=== PATIENT | female | born 1995 | race African-American/Black ===

== ENCOUNTER 2018-12-21 15:52 | Inpatient (IN) | payer OTHER ==
[2018-12-21] MEDS: Sodium Chloride 0.9% 1,000 ML IV SCH ×2 (16:30→17:44)
[2018-12-21 17:11] LABS: Hemoglobin 13.6 g/dL (12.0-16.0); Mean Corpuscular HGB CONC 31.8 g/dL (32.0-36.0); Mean Corpuscular Hemoglobin 24.6 pg (27.0-31.0); Mean Corpuscular Volume 77.4 fL (78.0-98.0); Mean Platelet Volume 11.5 fL (7.4-10.4); Platelet Count 198 thou/uL (130-400); RBC Distribution Width 20.9 % (11.5-14.5); Red Blood Cell (RBC) Count 5.54 mill/uL (4.20-5.40); White Blood Cell (WBC) Count 9.9 thou/uL (4.8-10.8)
--- NOTE | 2018-12-21 17:20 | PDOC.FPROB ---
FMR OB H&P: HPI - History of Present Illness Chief Complaint: Weakness, Vomiting History of Present Illness: Patient is a 23 yo AA female at 31.5 weeks per approx. 9 week U/S (per patient) who presents to L&D at [facility], with complaint of weakness and vomiting that started on Thursday and has been progressively worsening. She states she has not been able to eat much and is currently nauseous. She also complains of being thirsty and of some heartburn. Patient was diagnosed with T1DM at age 14, has had previous episodes of DKA (chart review shows treated here in 2017). Her FBG over past week have been in 260s- 300s per [facility] records. Patient reports she takes 11 units Novolog at 0500 and 2000, and uses a SSI with meals (correlated with [facility] records). Currently denies chest pain, sob, headache, dizziness, vision changes, hearing changes, diarrhea, constipation, myalgia, arthralgia. Patient states her due date is Feb 17, 2019 and says she has been told this date since she had an U/S done at [facility] in [place] at around 9 weeks EGA. Patient has had limited care at various locations in [place] and [place]. She has had no care in this area. In late Nov 2018 patient states she had a seizure while visiting a friend in [place] and was started on Keppra 500 mg BID at that time, denies any seizures since. R OB H&P: Current - Care : 1 Para: 0 Gestational age: 31.5 weeks Due date: 02/17/2019 Dating Criteria: 9 week U/S Course/Complications: limited PNC - OB Labs Blood type: B RH: positive Antibody Screen: unknown HIV: unknown RPR: unknown HepBsAg: unknown Quad screen: unknown Gonorrhea: unknown Chlamydia: unknown GBS: unknown FMR OB H&P: History - Past Medical History PMH: T1DM, Seizures, Anemia - OB History OB History: No previous pregnancies. Current @ estimated EGA 31.5 weeks per 9 week U/S (not verified by chart review) - [employer] History [employer] History: Denies hx of STDs or HIV infxn. - Surgical History Sx History: Appendectomy, Trach with previous DKA visit - Social History Social History: Denies EtOH or tobacco use. Admits to using marijuana 1 week ago. - Family History Family History: unknown FMR OB H&P: Medications - Current Home Medications: Medication Instructions Recorded Confirmed Type Ferrous Sulfate [Feosol] 325 mg PO BID-WM #60 tab 10/07/16 Rx HumuLIN 70/30 [HumuLIN 70/30 Vial] 25 units SC BID-WM #1 vial 10/07/16 Rx Humulin R [NovoLIN R] 0 unit SC TID-WM PRN #1 vial 10/07/16 Rx Acetaminophen [Tylenol] 325 mg PO BID 12/21/18 12/21/18 History Insulin Aspart [Novolog] 11 unit SQ BID 12/21/18 12/21/18 History Ondansetron HCl [Zofran] 4 mg PO Q8HR 12/21/18 12/21/18 History levETIRAcetam [Keppra] 500 mg PO BID 12/21/18 12/21/18 History Allergies/Adverse Reactions: Allergies Allergy/AdvReac Type Severity Reaction Status Date / Time Penicillins Allergy Unknown Rash Verified 12/21/18 17:57 warfarin Allergy Unknown Verified 12/21/18 17:57 grapefruit Allergy Rash Verified 10/04/16 15:53 morphine Allergy Verified 12/21/18 17:50 FMR OB H&P: ROS - Review of Systems General: reports: weight/appetite/sleep changes, fatigue. denies: fever/chills Eyes: denies: eye pain, vision changes, double vision ENT: denies: nasal congestion, rhinorrhea Cardiovascular: denies: chest pain, palpitation, edema Respiratory: denies: cough, congestion, shortness of breath Gastrointestinal: reports: indigestion, nausea, vomiting. denies: abdominal pain, diarrhea, constipation Genitourinary (Female): denies: dysuria, polyuria, vaginal discharge, vaginal bleeding, contractions Musculoskeletal: denies: pain, stiffness, tenderness, arthritis/arthralgias Neurologic: reports: seizures, weakness. denies: numbness, headache Integumentary: denies: itching, rash Endocrine: denies: polydipsia, polyuria FMR OB H&P: Vital Signs - Maternal Vital signs: BP 120s/70, HR 90s-140s - Heart Tones Baseline: 160 Variability: minimal Acceleration: absent Deceleration: absent Category: category 2 [place] contractions every: none FMR OB H&P: Physical Exam - Physical Exam General: NAD, awake, alert and oriented Deviation from normal: appears pale and speaking softly HEENT: normocephalic and atraumatic, EOMI, conjunctiva clear, no scleral icterus , grossly normal vision, grossly normal hearing Deviation from normal: dry mucous membranes Neck: supple, FROM Heart: RRR, normal S1/S2, no murmurs/rubs/gallops, pulses present, no edema General: CTAB, no respiratory distress, good air movement, no rales/rhonchi, no wheezing Abdomen: soft, fundus(cm) (firm, above umbilicus), non-tender, bowel sound present Musculoskeletal: pulses present, FROM in all four extremities Neurological: no focal deficit Skin: no rash, no jaundice Deviation from normal: poor turgor Lymphatic: no unusual bruising or bleeding Psychiatric: intact recent and remote memory, normal mood and affect FMR OB H&P: Results - Labs Lab results: Laboratory Results - last 24 hr 12/21/18 12/21/18 12/21/18 16:30 16:57 16:57 WBC 9.9 RBC 5.54 H Hgb 13.6 Hct 42.8 MCV 77.4 L MCH 24.6 L MCHC 31.8 L RDW 20.9 H Plt Count 198 MPV 11.5 H POC Glucose 253 H Blood Bank Comment See comment: FMR OB H&P: A/P - Problem List (1) Type 1 diabetes mellitus affecting in third trimester, antepartum Current Visit: Yes Status: Acute Code(s): O24.013 - PRE-EXISTING TYPE 1 DIABETES, IN , THIRD TRIMESTER (2) with fetus of unknown gestational age Current Visit: Yes Status: Acute Code(s): Z34.90 - ENCNTR FOR SUPRVSN OF NORMAL , UNSP, UNSP TRIMESTER (3) Tachycardia Current Visit: Yes Status: Acute Code(s): R00.0 - TACHYCARDIA, UNSPECIFIED (4) CASSIDY (acute kidney injury) Current Visit: Yes Status: Acute Code(s): N17.9 - ACUTE KIDNEY FAILURE, UNSPECIFIED Disposition: 23 yo Female evaluated for weakness and vomiting with presumed episode of DKA #Type 1 Diabetes Mellitus, suspected DKA -FBGs has been in 260s-300s over past week [facility] -hx of DKA in 2017, requiring a trach -currently receiving 1L NS bolus in L&D triage -will check CBC, CMP, UA, Ketones, HgA1C -will obtain ABGs -continue home insulin regimen: 11 units Novolog @ 0500 & 2000, mild SSI with meals--will titrate based on accuchecks #Tachycardia -patient initially had HR in 140s-160s upon initial L&D triage, currently HR in the 90s & BP wnl -continue to monitor vitals -will repeat NS bolus as needed -will check CBC, pt with hx of anemia # in third trimester with unconfirmed dates -patient states her due date was based on a 9 week U/S -order U/S for dating and status -will attempt to find any records, all labs currently unknown -will check blood type, UDS #Acute Kidney Injury -Cr 1.2 on CMP -currently receiving NS 1L bolus as above Dispo: Guarded, monitor on triage in L&D. Obtain labs and U/S for dating/ status. Anticipate admission to women's/post- floor later this evening for continued evaluation and care. Discussion: Date/Time: 12/21/181719 This H&P was discussed with Dr. Mills and Dr. Woodward who agree with the above documentation and plan. Addendum - Attending - Attending Attestation Date/Time: 12/21/182053 I personally evaluated the patient and discussed the management with Dr. Delaney I agree with the History, Examination, Assessment and Plan documented above with any addition or exceptions noted below- Consulted by Dr. Masterson for this 23 yo @ 31 weeks with h/o Type 1 DM, seizure disorder presented with weakness, N/V since Thursday. Has not been able to tolerate po well. Denies any fever, chills, abd pain, diarrhea, URI symptoms. H/o DKA -last in 2017. (+) FM. PMH/Meds/SH reviewed and agree with resident's documentation. Afebrile VSS Exam repeated by me and agree with resident's findings. Labs: Hx=809, K=3.9, Cl= 98, CO2=16, BUN/Cr=18/1.20, Ijhd=733, WBC=9.9, H/H=13.6/42.8, Jcc=133, serum ketones=6.63, U/A=4+ gluc, large ketones, 0-3 WBC, 1+bact, ABG=7.41/27/106/17 A/ P: 1) Early DKA - fluid resuscitation started; will start on DKA protocol and insulin drip. Repeat labs in 2-4 hours. Accuchecks q1 hour. 2) Seizure d/o - keppra level undetectable most likely due to inability to hold down meds from N/ V; will give medication via IV. 3) IUP@31 5/7 weeks- care as per Dr. Masterson; NST qshift
[2018-12-21 17:32] LABS: #Basophils 0.1 thou/uL (0.0-0.2); #Lymphocytes 1.8 thou/uL (1.20-3.40); %Basophils 0.6 % (0.0-1.0); %Eosinophils 0.3 % (0.0-10.0); %Lymphocytes 18.1 % (21.0-51.0); %Monocytes 10.1 % (0.0-10.0); %Neutrophils 70.9 % (42.0-75.0); Anisocytosis SLIGHT = 6-15 cells (100X) (0-5/hpf); MDiff Complete? YES; Platelet Morphology Comment Appears Adequate; Poikilocytosis SLIGHT = 6-15 cells (100X) (0-5/hpf)
[2018-12-21 17:39] LABS: ALT (SGPT) 9 U/L (8-55); AST (SGOT) 18 U/L (5-34); Albumin 3.8 g/dL (3.5-5.0); Alkaline Phosphatase 106 U/L (40-150); Anion Gap 27 mmol/L (10-20); BUN (Urea Nitrogen) 18 mg/dL (7.0-18.7); Bilirubin, Total 0.5 mg/dL (0.2-1.2); Calc. Creatinine Clearance 0 mL/min (70-130); Calcium 9.6 mg/dL (7.8-10.44); Carbon Dioxide 16 mmol/L (22-29); Chloride 98 mmol/L (98-107); Estimated GFR-MDRD 66; Globulin 2.9 g/dL (2.4-3.5); Glucose 261 mg/dL (70-105); Potassium 3.9 mmol/L (3.5-5.1); Protein, Total 6.7 g/dL (6.0-8.3); Sodium 137 mmol/L (136-145)
[2018-12-21 17:48] LABS: Hemoglobin A1c 5.9 % (4.0-6.0)
[2018-12-21] MEDS ORDERED: Promethazine HCl 25 MG/ML VIAL IM PRN (18:11)
[2018-12-21] MEDS ORDERED: Acetaminophen 500 MG TAB PO PRN (18:11)
[2018-12-21] MEDS ORDERED: Ondansetron PF 4 MG/2 ML Vial IVP PRN (18:11)
--- NOTE | 2018-12-21 18:13 | ULT ---
EXAM: OB ultrasound COMPARISON: None HISTORY: female with unsure dates. TECHNIQUE: Multiplanar grayscale and color Doppler images were obtained in a transabdominal ult rasound. FINDINGS: There is a single live intrauterine with heart rate of 175 bpm. A limited s urvey was performed which is unremarkable. Estimated weight is 1390 g. Average age of the fetus based off today's examination is 29 weeks 6 days. BPD 7.70 cm -- 30 weeks 6 days HC 27.11 cm -- 29 weeks 4 days AC 24.91 cm -- 29 weeks 1 day FL 5.61 cm -- 29 weeks 4 days The placenta is posterior in location without focal abnormality. TYSON is 8.3 cm which is normal. The c ervix is not visualized as the fetus is in cephalic presentation. IMPRESSION: Single live intrauterine with estimated age of 29 weeks 6 days.
[2018-12-21 18:58] LABS: Bilirubin Negative (Negative); Blood, Urine Negative (Negative); Clarity Clear (Clear); Glucose, Urine (Dipstick) Greater than 1000 mg/dL (Negative); Leukocyte Negative Leu/uL (Negative); Nitrite Negative (Negative); Protein, Urine (Dipstick) 50 mg/dL (Neg-Trace); RBC/HPF 0-3 HPF (0-3); Squamous Epithelial 0-3 HPF (0-3); WBC/HPF 0-3 HPF (0-3)
--- NOTE | 2018-12-21 18:59 | PDOC.EVN ---
Event Note - Event Note Event Note: Fhts show no decels, no significant UCs seen. USG shows biometry c/w dates, TYSON= 8.3, vtx. Labs c/w DKA. To [facility] for insulin drip. FP input and mgmt greatly appreciated.
[2018-12-21 19:06] LABS: Bacteria/HPF 1+ HPF (None Seen)
[2018-12-21 19:08] LABS: Actual Bicarbonate (HCO3a) 17.2 mEq/L (22-28); CO2 Tension 27.6 mmHg (35.0-45.0); Calcium, Ionized 1.15 mmol/L (1.12-1.30); Carboxyhemoglobin (COHb) 0.7 gm% (0.0-3.0); Hemoglobin (Hb) 12.3 g/dL (12.0-16.0); O2 Tension (PaO2) 106.6 mmHg (80.0-100.0); Potassium - ABG Lab 3.56 mmol/L (3.70-5.30); pH, Arterial 7.41 (7.35-7.45)
[2018-12-21 19:10] LABS: Puncture Site LRA
[2018-12-21 19:13] LABS: Amphetamine Not Detected (NotDetected); Barbiturates Screen Not Detected (NotDetected); Benzodiazepine Screen Not Detected (NotDetected); Cocaine Metabolite Screen Not Detected (NotDetected); Medtox Control Line Valid? VALID (VALID); Medtox Reader # READER 4; Methadone Not Detected (NotDetected); Methamphetamine Not Detected (NotDetected); Opiate Screen Not Detected (NotDetected); Oxycodone Screen Not Detected (NotDetected); Phencyclidine (PCP) Not Detected (NotDetected); THC/Cannabinoid Screen Detected (NotDetected); Tricyclic Screen Not Detected (NotDetected)
[2018-12-21 19:18] VITALS: BMI 18.3
[2018-12-21 19:19] VITALS: BP 103/70
[2018-12-21] MEDS ORDERED: Dextrose 5% in Water 1,000 ML IV PRN (19:26)
[2018-12-21] MEDS ORDERED: Dextrose 50% Abboject 50 ML SYRINGE SLOW IVP PRN (19:26)
[2018-12-21] MEDS ORDERED: Dextrose 5 %-0.45 % NaCl 1,000 ML IV PRN (19:26)
[2018-12-21] MEDS ORDERED: Sodium Chloride 0.9% 1,000 ML IV PRN ×4 (19:26)
[2018-12-21] MEDS ORDERED: CCU Electrolyte Replacement 1 EACH IVPB SCH (19:26)
[2018-12-21] MEDS ORDERED: NS 0.9% w/ 20 MEQ KCL 1,000 ML IV PRN ×2 (19:26)
--- NOTE | 2018-12-21 19:39 | PDOC.EVN ---
Event Note - Event Note Event Note: S: Saw pt this evening, had black/brown emesis. Denies hx of ulcers. Reports vomiting multiple times since Thursday. Informed pt of ICU transfer. She had no questions at this time. O: labs showed DKA. AG = 26 w/ sodium correction of hyperglycemia. Reactive strip, no ctx. ABG drawn by respiratory prior to transfer to CCU: pH 7.41, PCO2 27.6, Bicarb 17. A/P: Spoke w/ charge of CCU and accepts transfer. Transfer orders and DKA protocol initiated. VTE PPx: SCDs GI PPx: famotidine
[2018-12-21] MEDS ORDERED: Potassium Phosphate 15 MMOL in Sodium Chloride 0.9% 250 ML 250 ML IV PRN (19:41)
[2018-12-21] MEDS ORDERED: Potassium Chloride 40 MEQ in Premix Bag 1 BAG IVPB PRN (19:41)
[2018-12-21] MEDS ORDERED: Potassium Chloride 40 MEQ in Sodium Chloride 0.9% 250 ML 250 ML IVPB PRN (19:41)
[2018-12-21] MEDS ORDERED: CCU ELECTROLYTE REPLACEMENT PROTOCOL FS PRN (19:41)
[2018-12-21] MEDS ORDERED: Potassium Chloride 20 MEQ TAB PO PRN (19:41)
[2018-12-21] MEDS ORDERED: Potassium Phosphate 12 MMOL in Sodium Chloride 0.9% 250 ML 250 ML IV PRN (19:41)
[2018-12-21] MEDS ORDERED: Magnesium Oxide 400 MG TAB PO PRN ×2 (19:41)
[2018-12-21] MEDS ORDERED: Potassium Phosphate 9 MMOL in Sodium Chloride 0.9% 100 ML IVPB PRN (19:41)
[2018-12-21] MEDS ORDERED: Magnesium 2 GM/50 ML 2 GM in Premix Bag 1 BAG IVPB PRN (19:41)
[2018-12-21] MEDS ORDERED: PHOS-NAK 1 PKT PACK PO PRN ×2 (19:41)
[2018-12-21] MEDS ORDERED: Famotidine/PF 20 mg/2ml Vial SLOW IVP SCH ×2 (20:00→21:00)
[2018-12-21] MEDS ORDERED: HUMULIN R 100 UNITS in Sodium Chloride 0.9% 100 ML IVPB SCH (20:00)
[2018-12-21 20:21] LABS: Anion Gap 20 mmol/L (10-20); BUN (Urea Nitrogen) 16 mg/dL (7.0-18.7); Calc. Creatinine Clearance 70 mL/min (70-130); Calcium 8.4 mg/dL (7.8-10.44); Carbon Dioxide 20 mmol/L (22-29); Chloride 105 mmol/L (98-107); Estimated GFR-MDRD 85; Glucose 193 mg/dL (70-105); Potassium 3.8 mmol/L (3.5-5.1); Sodium 141 mmol/L (136-145)
[2018-12-21] MEDS: D5 1/2 NS w/20 mEq KCL 1,000 ML IV PRN ×2 (20:59→23:53)
[2018-12-21] MEDS: Lactated Ringer's 1,000 ML IV SCH (21:06)
--- NOTE | 2018-12-21 23:22 | HP ---
CHIEF COMPLAINT: Here from [facility], nausea, vomiting. HISTORY OF PRESENT ILLNESS: Ms. Wallace is a 23-year-old black G1, P0 with an estimated date of confinement of 02/17/2019, who presents from [facility] complaining of repeated nausea with multiple episodes of emesis over the last 2 to 3 days. She denies bleeding or ruptured membranes. PAST MEDICAL HISTORY: Includes insulin-requiring diabetes diagnosed at age 14, as well as seizure disorder. PAST SURGICAL HISTORY: Includes appendectomy and tracheostomy. CURRENT MEDICATIONS: NovoLog 11 units b.i.d. and regular insulin on a sliding scale three times a day. She also takes Keppra of unknown dose twice a day. ALLERGIES: PENICILLIN AND MORPHINE, BOTH OF WHICH GIVE HER RASH. SOCIAL HISTORY: She smokes marijuana. She denies tobacco or other illicit drug use. FAMILY HISTORY: Unremarkable. REVIEW OF SYSTEMS: Positive for nausea, vomiting. Denies diarrhea or fever. She denies ruptured membranes or vaginal bleeding. PHYSICAL EXAMINATION: VITAL SIGNS: On admission, her blood pressure is 117/82, her pulse is 93. GENERAL: She is not feeling well. CHEST: Clear to auscultation. CARDIOVASCULAR: Regular rate and rhythm. ABDOMEN: Thin, but gravid. There is no guarding or rebound. PELVIC: Deferred. heart rate tracing is stable with no decelerations. No regular uterine contractions are noted. Initial glucose is 253. ASSESSMENT: 1. 31 and 5/7th week intrauterine . Extent of care unknown. 2. Persistent nausea and vomiting. 3. Insulin-requiring diabetes. PLAN: ultrasound has been ordered. The patient is given a liter bolus of normal saline. I have consulted Family Medicine for management of her glucose status. Laboratories are currently pending. Job ID: [id number] MTDD
[2018-12-21 23:59] LABS: Anion Gap 12 mmol/L (10-20); BUN (Urea Nitrogen) 15 mg/dL (7.0-18.7); Calc. Creatinine Clearance 81 mL/min (70-130); Calcium 8.1 mg/dL (7.8-10.44); Carbon Dioxide 23 mmol/L (22-29); Chloride 109 mmol/L (98-107); Estimated GFR-MDRD Greater than 90; Glucose 176 mg/dL (70-105); Potassium 3.5 mmol/L (3.5-5.1); Sodium 140 mmol/L (136-145)
[2018-12-22] MEDS: Lactated Ringer's 1,000 ML IV SCH ×3 (04:02→23:04)
[2018-12-22 04:06] VITALS: TEMP 98.6
[2018-12-22 04:11] LABS: Anion Gap 10 mmol/L (10-20); BUN (Urea Nitrogen) 13 mg/dL (7.0-18.7); Calc. Creatinine Clearance 88 mL/min (70-130); Calcium 7.7 mg/dL (7.8-10.44); Carbon Dioxide 22 mmol/L (22-29); Chloride 111 mmol/L (98-107); Estimated GFR-MDRD Greater than 90; Glucose 173 mg/dL (70-105); Potassium 3.6 mmol/L (3.5-5.1); Sodium 139 mmol/L (136-145)
[2018-12-22 04:24] LABS: ALT (SGPT) Less than 7 U/L (8-55); AST (SGOT) 9 U/L (5-34); Albumin 2.7 g/dL (3.5-5.0); Alkaline Phosphatase 71 U/L (40-150); Anion Gap 11 mmol/L (10-20); BUN (Urea Nitrogen) 13 mg/dL (7.0-18.7); Bilirubin, Total 0.4 mg/dL (0.2-1.2); Calc. Creatinine Clearance 89 mL/min (70-130); Calcium 7.7 mg/dL (7.8-10.44); Carbon Dioxide 20 mmol/L (22-29); Chloride 111 mmol/L (98-107); Estimated GFR-MDRD Greater than 90; Globulin 2.1 g/dL (2.4-3.5); Glucose 172 mg/dL (70-105); Potassium 3.6 mmol/L (3.5-5.1); Protein, Total 4.8 g/dL (6.0-8.3); Sodium 138 mmol/L (136-145)
[2018-12-22 05:24] LABS: #Lymphocytes 1.8 thou/uL (1.20-3.40); #Monocytes 0.9 thou/uL (0.11-0.59); #Neutrophils 3.6 thou/uL (1.40-6.50); %Basophils 0.2 % (0.0-1.0); %Eosinophils 0.4 % (0.0-10.0); %Monocytes 14.3 % (0.0-10.0); %Neutrophils 57.1 % (42.0-75.0); Anisocytosis SLIGHT = 6-15 cells (100X) (0-5/hpf); Hemoglobin 10.4 g/dL (12.0-16.0); MDiff Complete? YES; Mean Corpuscular HGB CONC 31.7 g/dL (32.0-36.0); Mean Corpuscular Hemoglobin 25.6 pg (27.0-31.0); Mean Corpuscular Volume 80.5 fL (78.0-98.0); Mean Platelet Volume 10.4 fL (7.4-10.4); Platelet Count 162 thou/uL (130-400); RBC Distribution Width 20.4 % (11.5-14.5); Red Blood Cell (RBC) Count 4.07 mill/uL (4.20-5.40); White Blood Cell (WBC) Count 6.2 thou/uL (4.8-10.8)
[2018-12-22] MEDS: D5 1/2 NS w/20 mEq KCL 1,000 ML IV PRN ×2 (05:48→10:04)
--- NOTE | 2018-12-22 06:03 | PDOC.EVN ---
Event Note - Event Note Event Note: 31 6/7 weeks. Resting comfortably in MICU. VS: 94/58, 70, 100% on RA No vaginal bleeding or LOF. Insulin drip at 2.5 units/hr. 4AM BS= 144. Monitoring q shift.
--- NOTE | 2018-12-22 07:00 | PDOC.FM ---
- Subjective Subjective: Feeling much better this morning. Continues to have nausea and vomiting. Reports this has been a problem for the past few weeks. No 1T n/v. No overnight events. Gap now closed and diet ordered. She has only tried juice this morning which she vomited shortly after. Denies VB, abnormal discharge, LOF, CTX. Endorses FM. Denies any recent fever/chills, URI symptoms or infections. On 1U per 13 carbs at home with approx 65 carbs per meal. Reports BG was well controlled until she was incarcerated and they did not have Lantus in stock. She was receiving Humalog only for 2 days. - Objective MAR Reviewed: Yes Vital Signs & Weight: Vital Signs (12 hours) Temp Pulse Ox 12/22/18 04:00 98.6 F 12/22/18 00:00 98.4 F 12/21/18 22:00 98.9 F 12/21/18 20:00 100 Weight Weight 49.895 kg Most Recent Monitor Data Heart Rate from ECG 60 NIBP 99/66 NIBP BP-Mean 77 Respiration from ECG 19 SpO2 100 I&O: 12/20/18 12/21/18 12/22/18 06:59 06:59 06:59 Intake Total 2523 Output Total 360 Balance 2163 Result Diagrams: 12/22/18 03:29 12/22/18 03:29 Phys Exam - Physical Examination Constitutional: NAD HEENT: moist MMs Neck: supple Respiratory: no wheezing, clear to auscultation bilateral Cardiovascular: RRR, no significant murmur Gastrointestinal: soft, non-tender, positive bowel sounds Musculoskeletal: no edema, pulses present Neurological: non-focal Psychiatric: normal affect, A&O x 3 Dx/Plan (1) CASSIDY (acute kidney injury) Code(s): N17.9 - ACUTE KIDNEY FAILURE, UNSPECIFIED Status: Acute (2) Type 1 diabetes mellitus affecting in third trimester, antepartum Code(s): O24.013 - PRE-EXISTING TYPE 1 DIABETES, IN , THIRD TRIMESTER Status: Acute (3) DKA, type 1 Code(s): E10.10 - TYPE 1 DIABETES MELLITUS WITH KETOACIDOSIS WITHOUT COMA Status: Chronic Qualifiers: Diabetes mellitus complication detail: without coma Qualified Code(s): E10.10 - Type 1 diabetes mellitus with ketoacidosis without coma - Plan Plan: 23yo G1 female at 31.6wks by ~9wk US presents in DKA Type 1 DM in DKA, gap closed - Likely due to 2 days without long acting insulin at assisted as they did not have Lantus available. Was just receiving sliding scale during this time. - Initial gap: 23--> now closed at 6 - Initial Beta hydroxybuterate: 6.63 - Hx of DKA in 2017 requiring a trach - Scheduled for Lantus at 0730, will stop the insulin gtt 2 hrs after and transfer out of ICU. CC diet ordered - Will give 3U Humalog prior to meals. Pt gets 1U per 13 carbs. - Consider switching to NPH and Regular insulin during . Moderate dehydration, resolved - Appears to euvolemic 3T - Daily NST Poor Care - US preformed here on 12/21 29.6wks. Pt reports dating US at 9 wks - Requesting records from [facility] in [place] CASSIDY, resolved
[2018-12-22] MEDS: HumaLOG 300 UNITS/3 ML VIAL SC SCH ×3 (07:36→18:28)
[2018-12-22] MEDS: Insulin Glargine 16 UNITS in Pre-Filled Syringe 1 EACH SC SCH (07:36)
[2018-12-22] MEDS ORDERED: HumuLIN 70/30 (300 UNITS/3 ML VIAL) SC SCH (08:00)
--- NOTE | 2018-12-22 08:18 | PDOC.EVN ---
Event Note - Event Note Event Note: [employer] OBGYN CHECKOUT Report [id number] CCU Care primarily being done by FM for DKA Cannabis noted on screen No acute OB issues at this point
[2018-12-22] MEDS ORDERED: Famotidine/PF 20 mg/2ml Vial SLOW IVP SCH (09:00)
[2018-12-22] MEDS ORDERED: diphenhydrAMINE 25 MG CAP PO PRN (10:02)
[2018-12-22] MEDS ORDERED: pyridOXINE 50 MG (B6) TAB PO PRN (10:04)
--- NOTE | 2018-12-22 11:58 | PDOC.EVN ---
Event Note - Event Note Event Note: OBGYN Chart Check: Patient with no care. Lab check here does not have OB labs like: HIV/RPR/Type and RH/HepBSAG, so I have ordered these now.
[2018-12-22 13:34] LABS: HBSAg Index 0.14 S/CO (0-0.99); HIV (1/2) Antibody/Antigen Non-Reactive (NonReactive); HIV 1/2 INDEX 0.06 S/CO (<1.00); Hep B Surf Ag Non-Reactive S/CO (NonReactive)
[2018-12-22 13:37] LABS: Syphilis Antibody Nonreactive (Nonreactive); Syphilis Antibody Index 0.02 S/CO (<1.00 Non-Reactive)
[2018-12-22] MEDS ORDERED: Dextrose 5% in Water 1,000 ML IV PRN (14:00)
[2018-12-22] MEDS ORDERED: Dextrose 50% Abboject 50 ML SYRINGE SLOW IVP PRN (14:00)
--- NOTE | 2018-12-22 16:35 | PDOC.EVN ---
Event Note - Event Note Event Note: OBGYN 3249 L&D I was just notified patient was transferred back to L&D by FM. I will review FM plan of care. Care by FM up to this point. HIV/RPR/HepB negative Bpos
--- NOTE | 2018-12-22 17:02 | PDOC.EVN ---
Event Note - Event Note Event Note: OBGYN assembler production line At bedside Guard here Has scheduled insulin ordered and regular sugar checks Urine output 10nl over last 2 hours...IVFs 125ml/hr, residents aware. I have also ordfered GC and CGL vag swab DM meds per NST BID
[2018-12-22] MEDS ORDERED: diphenhydrAMINE 25 MG CAP PO SCH (21:00)
[2018-12-22] MEDS ORDERED: pyridOXINE 50 MG (B6) TAB PO SCH (21:00)
[2018-12-22] MEDS: levETIRAcetam 500 MG TAB PO SCH (21:51)
[2018-12-22] MEDS: Famotidine 20 MG TAB PO SCH (21:52)
[2018-12-23] MEDS: Lactated Ringer's 1,000 ML IV SCH (06:47)
--- NOTE | 2018-12-23 07:06 | PDOC.FM ---
- Subjective Subjective: No overnight events. Feeling much better today. BG of 62 this morning but asymptomatic. Denies nausea/vomiting. Endorses FM. - Objective MAR Reviewed: Yes Vital Signs & Weight: Weight Admit Weight 49.895 kg Weight 49.895 kg Most Recent Monitor Data Heart Rate from ECG 69 NIBP 112/76 NIBP BP-Mean 88 Respiration from ECG 0 SpO2 100 I&O: 12/22/18 12/23/18 12/24/18 06:59 06:59 06:59 Intake Total 2523 607 Output Total 360 425 Balance 2163 182 Result Diagrams: 12/22/18 03:29 12/22/18 03:29 Phys Exam - Physical Examination Constitutional: NAD HEENT: moist MMs Neck: supple Respiratory: no wheezing, clear to auscultation bilateral Cardiovascular: RRR, no significant murmur Gastrointestinal: soft, non-tender gravid Musculoskeletal: no edema Neurological: non-focal Psychiatric: normal affect, A&O x 3 Skin: no rash, normal turgor Dx/Plan (1) CASSIDY (acute kidney injury) Code(s): N17.9 - ACUTE KIDNEY FAILURE, UNSPECIFIED Status: Acute (2) Type 1 diabetes mellitus affecting in third trimester, antepartum Code(s): O24.013 - PRE-EXISTING TYPE 1 DIABETES, IN , THIRD TRIMESTER Status: Acute (3) DKA, type 1 Code(s): E10.10 - TYPE 1 DIABETES MELLITUS WITH KETOACIDOSIS WITHOUT COMA Status: Chronic Qualifiers: Diabetes mellitus complication detail: without coma Qualified Code(s): E10.10 - Type 1 diabetes mellitus with ketoacidosis without coma - Plan Plan: 23yo G1 female at 32.0wks by ~9wk US presents in DKA Type 1 DM in DKA, gap closed - Likely due to 2 days without long acting insulin at detention as they did not have Lantus available. Was just receiving sliding scale during this time. - Gap closed, now off gtt and on SQ insulin. Continue home Lantus dose. - 3U Humalog prior to meals. Pt gets 1U per 13 carbs. 3T - NST BID Poor Care - US preformed here on 12/21 29.6wks. Pt reports dating US at 9 wks - Requesting records from [facility] in [place] - HIV/RPR/Hep B neg. B positive - Will need to follow up with OB continuity provider. CASSIDY, resolved Moderate dehydration, resolved Cannibas use during Dispo: Discharge likely today
--- NOTE | 2018-12-23 07:48 | PDOC.EVN ---
Event Note - Event Note Event Note: OBGYN Structural Engineering Project Manager Uneventful night overnight S. no new CO O. VSS afebrile FHTS wnl No CTX Labs reviewed GC and CHL pending A/P: Discussed dispo with Dr abel. We will plan on DC to home today and have her follow up for care with community provider. Meds to be given per FM
[2018-12-23] MEDS: HumaLOG 300 UNITS/3 ML VIAL SC SCH ×2 (07:53→14:40)
[2018-12-23] MEDS: Insulin Glargine 16 UNITS in Pre-Filled Syringe 1 EACH SC SCH (07:56)
[2018-12-23] MEDS: levETIRAcetam 500 MG TAB PO SCH (09:21)
[2018-12-23] MEDS: Famotidine 20 MG TAB PO SCH (09:22)
[2018-12-23 12:49] LABS: #Lymphocytes 1.2 thou/uL (1.20-3.40); #Monocytes 0.6 thou/uL (0.11-0.59); #Neutrophils 3.1 thou/uL (1.40-6.50); %Basophils 0.4 % (0.0-1.0); %Eosinophils 0.9 % (0.0-10.0); %Lymphocytes 24.7 % (21.0-51.0); %Monocytes 12.5 % (0.0-10.0); %Neutrophils 61.5 % (42.0-75.0); Hemoglobin 9.9 g/dL (12.0-16.0); Mean Corpuscular HGB CONC 32.5 g/dL (32.0-36.0); Mean Corpuscular Hemoglobin 25.3 pg (27.0-31.0); Mean Corpuscular Volume 77.9 fL (78.0-98.0); Platelet Count 127 thou/uL (130-400); RBC Distribution Width 20.4 % (11.5-14.5); Red Blood Cell (RBC) Count 3.91 mill/uL (4.20-5.40)
[2018-12-23 13:03] LABS: Anion Gap 7 mmol/L (10-20); BUN (Urea Nitrogen) 7 mg/dL (7.0-18.7); Calc. Creatinine Clearance 117 mL/min (70-130); Calcium 8.1 mg/dL (7.8-10.44); Carbon Dioxide 23 mmol/L (22-29); Chloride 106 mmol/L (98-107); Estimated GFR-MDRD Greater than 90; Glucose 98 mg/dL (70-105); Potassium 3.4 mmol/L (3.5-5.1); Sodium 133 mmol/L (136-145)
[2018-12-23 13:19] LABS: Anisocytosis SLIGHT = 6-15 cells (100X) (0-5/hpf); Hypochromia SLIGHT = 6-15 cells (100X) (0-5/hpf); MDiff Complete? YES; Microcytosis SLIGHT = 6-15 cells (100X) (0-5/hpf); Platelet Morphology Comment Appears Decreased; Polychromasia SLIGHT = 2-3 cells (100X) (0-2/hpf)
[2018-12-23 21:04] LABS: Chlamydia by PCR Not Detected (NotDetected); GC by PCR Not Detected (NotDetected)
== END 2018-12-23 15:47 | DRG 831 ==
LOC: L&D/OP 15:52 → L&D 19:23 → CCU 20:49 → L&D 12-22 14:15
PROVIDERS: ADMIT Obstetrics & Gynecology; ATTEND Obstetrics & Gynecology
DX: O24.013 Pre-existing type 1 diabetes mellitus, in pregnancy, third trimester (principal); E10.10 Type 1 diabetes mellitus with ketoacidosis without coma; O99.413 Diseases of the circulatory system complicating pregnancy, third trimester; O26.833 Pregnancy related renal disease, third trimester; N17.9 Acute kidney failure, unspecified; O99.323 Drug use complicating pregnancy, third trimester; Z3A.31 31 weeks gestation of pregnancy; R00.0 Tachycardia, unspecified; O99.283 Endocrine, nutritional and metabolic diseases complicating pregnancy, third trimester; F12.90 Cannabis use, unspecified, uncomplicated
CPT/HCPCS: 36415; 36416; 51702; 76815; 80048; 80053; 80177; 80306; 81003; 81015; 82010; 82805; 83036; 85025; 86780; 86850; 86900; 86901; 87086; 87340; 87389; 87491; 87591; 99285; J1815; J1953; J2405; J2550; J3480; J3490; Q0163; S0028

== ENCOUNTER 2018-12-28 07:57 | Inpatient (IN) | payer OTHER ==
[2018-12-28 08:43] VITALS: BMI 17.7
[2018-12-28] MEDS ORDERED: hydrALAZINE 20 MG/ML VIAL SLOW IVP PRN ×2 (09:06→10:57)
[2018-12-28 09:44] LABS: ALT (SGPT) 16 U/L (8-55); AST (SGOT) 21 U/L (5-34); Albumin 3.5 g/dL (3.5-5.0); Alkaline Phosphatase 103 U/L (40-150); Anion Gap 27 mmol/L (10-20); BUN (Urea Nitrogen) 4 mg/dL (7.0-18.7); Bilirubin, Total 0.5 mg/dL (0.2-1.2); Calc. Creatinine Clearance 85 mL/min (70-130); Calcium 9.4 mg/dL (7.8-10.44); Carbon Dioxide 15 mmol/L (22-29); Chloride 96 mmol/L (98-107); Estimated GFR-MDRD Greater than 90; Globulin 3.1 g/dL (2.4-3.5); Glucose 128 mg/dL (70-105); Potassium 3.2 mmol/L (3.5-5.1); Protein, Total 6.6 g/dL (6.0-8.3); Sodium 135 mmol/L (136-145)
[2018-12-28 09:51] LABS: Magnesium 1.5 mg/dL (1.6-2.6)
[2018-12-28] MEDS ORDERED: Lidocaine 1% (PF) 30 ML VIAL ONE (10:04)
[2018-12-28] MEDS ORDERED: Potassium Chloride 40 MEQ in Dextrose 5%-Lactated Ringers 1,000 ML IV SCH (10:15)
[2018-12-28 10:21] LABS: Folate (Folic Acid) 12.5 ng/mL (7.0-31.4)
[2018-12-28] MEDS: Promethazine HCl 25 MG/ML VIAL IM PRN ×2 (10:27→22:26)
[2018-12-28] MEDS ORDERED: Dextrose 50% Abboject 50 ML SYRINGE SLOW IVP PRN (10:28)
[2018-12-28] MEDS ORDERED: Dextrose 5% in Water 1,000 ML IV PRN (10:28)
[2018-12-28] MEDS ORDERED: Lactated Ringer's 1,000 ML IV SCH (10:30)
[2018-12-28] MEDS ORDERED: D5 NS w/ 40 mEq KCl 1,000 ML IV SCH (10:30)
[2018-12-28] MEDS ORDERED: Magnesium Sulfate 3 GM in Sodium Chloride 0.9% 100 ML IVPB SCH (10:30)
[2018-12-28] MEDS ORDERED: Famotidine/PF 20 mg/2ml Vial SLOW IVP SCH (10:30)
[2018-12-28] MEDS ORDERED: Ondansetron PF 4 MG/2 ML Vial IVP PRN (10:57)
--- NOTE | 2018-12-28 13:30 | HP ---
PRIMARY OB: None. CHIEF COMPLAINT: Nausea and vomiting. HISTORY OF PRESENT ILLNESS: The patient is a 23-year-old G1, P0 female with an intrauterine at 32 weeks and 4 days, who is presenting from [facility] for persistent nausea and vomiting for the last 2 weeks. The patient was admitted about a week ago on 12/21 with similar complaints. There was initial concern that she was in DKA, was appropriately managed and then discharged on her home medications. The patient reports that since she got back to the alf that she started having persistent nausea, vomiting again, that she has not been able to keep anything down. She also reports that she has felt extremely weak and tired, and that she has not been taking her insulin because her blood sugars have been remaining low and when she does take her insulin, her blood sugars go down from the 70s to 40s. The patient denies any fever or illness. She denies any falls, headache, chest pain, or shortness of breath. She does report heartburn, nausea , and vomiting. Denies diarrhea or constipation. Denies hip problems, knee problems, or muscle weakness. Denies contractions, vaginal bleeding, or leakage of fluid. Denies urinary urgency or frequency. PAST MEDICAL HISTORY: Includes type 1 diabetes, diagnosed at age 14; seizure disorder, stable on Keppra. PAST SURGICAL HISTORY: Appendectomy and tracheostomy. ALLERGIES: PENICILLIN AND MORPHINE. MEDICATIONS: Keppra 500 twice a day. The patient was discharged on Lantus 16 units daily and 3 units of Humalog with each meal plus 1 unit for every 13 carbs, but the patient has not been taking insulin since she has been discharged home. SOCIAL HISTORY: The patient has a history of marijuana use. Denies tobacco or alcohol use. REVIEW OF SYSTEMS: Per HPI. PHYSICAL EXAMINATION: VITAL SIGNS: Blood pressure 119/82, heart rate of 113, respiratory rate of 14, and temperature 98.5. GENERAL: The patient appears to be very lethargic and with a depressed affect and mood. The patient is cooperative and is able to answer questions and communicate coherently and is alert when stimulated. HEENT: The patient's head is normocephalic, atraumatic. LUNGS: Clear to auscultation bilaterally. HEART: Had a regular rate and rhythm at the time of my exam. ABDOMEN: Gravid, soft, and nontender. EXTREMITIES: Nontender. The patient looks very thin. DIAGNOSTIC DATA: heart tracing shows a baseline in the 150s with moderate long-term variability. Positive 15 x 15 accelerations. The tocometer showing some irritability. The patient has sodium of 135, potassium of 3.2, chloride of 96, anion gap of 17 , BUN of 4, creatinine of 0.8, glucose of 128, serum osmolality of 281, magnesium of 1.5, AST of 21, and ALT of 16. B12 of 771, folate of 12.5. Beta- hydroxybutyrate of 8.2. Urine is still pending. ASSESSMENT AND PLAN: The patient is a 23-year-old female with type 1 diabetes and gestational age of 32 weeks and 4 days, presenting with persistent nausea and vomiting. The patient is showing euvolemia and euglycemic state, but concerns for diabetic ketoacidosis. The patient is being hydrated with her IV. We are replacing her magnesium and potassium and we will be starting her on D5 normal saline and transition to D5 half-normal saline. She has received 1 L of LR at this point. Once her blood sugars have risen, we will get her started back on insulin. Repeat labs in about 4 to 6 hours. Fetus is reassuring at this point. Urinalysis is still pending. Job ID: [id number] [facility]OR[facility]
[2018-12-28] MEDS: HumaLOG 300 UNITS/3 ML VIAL SC PRN ×6 (13:34→23:11)
[2018-12-28] MEDS ORDERED: NS / Oxytocin 40 units/1000ml 0 ML ONE ×2 (13:37→16:40)
--- NOTE | 2018-12-28 13:45 | PDOC.EVN ---
Event Note - Event Note Event Note: Asked ICU nurse to come and place peripheral line with u/s. It was placed successfully. Can more aggressively hydrate now. Pt has receive 1 ltr of LR, and has 1ltr of d5 NS with 40Kcl at 100cc/hr x1ltr. Will change to d5 1/2NS w/ 40meq kcl with next liter. getting 500cc bolus ns in second line now. then 100cc/hr for total of 200cc/hr iv fluids. BS now 182. Will start giving insulin on sliding scale. wt today 108 lbs before fluid started. 2002 Pt sleeping in bed when I enter. Pt reports not feeling any better as compared to this AM still. Electrolyle abnormalities resolving with replacement. serum ketones improving. Drawing now. Also bolusing 500cc NS then will return to d5 1/ 2NS with 40meq of KCL. Pt has no desire to eat. SHe has lost 22lbs since being placed in [facility]. PT weighed 12/19 at 130lbs as documented on her intake. Will attempt food tomorrow. Dating established by a reported 9wk us at [facility] with a due date of . U/S 12/21/18 show wt at 1390gm at 31.5wks putting baby at the 7th percentile if her reports of established due date at 9wks is correct. Given this was performed only a week ago will hold off repeat u/s at this time.
[2018-12-28 15:28] LABS: Bacteria/HPF None Seen HPF (None Seen); Bilirubin Negative (Negative); Blood, Urine Negative (Negative); Clarity Clear (Clear); Glucose, Urine (Dipstick) 50 mg/dL (Negative); Leukocyte Negative Leu/uL (Negative); Nitrite Negative (Negative); Protein, Urine (Dipstick) 30 mg/dL (Neg-Trace); RBC/HPF 0-3 HPF (0-3); Squamous Epithelial 0-3 HPF (0-3); Urobilinogen Normal mg/dL (Less than 2); WBC/HPF 0-3 HPF (0-3)
[2018-12-28 16:12] LABS: Anion Gap 21 mmol/L (10-20); BUN (Urea Nitrogen) 4 mg/dL (7.0-18.7); Calc. Creatinine Clearance 81 mL/min (70-130); Calcium 7.5 mg/dL (7.8-10.44); Carbon Dioxide 11 mmol/L (22-29); Chloride 109 mmol/L (98-107); Estimated GFR-MDRD Greater than 90; Glucose 502 mg/dL (70-105); Potassium 6.5 mmol/L (3.5-5.1); Sodium 134 mmol/L (136-145)
[2018-12-28 16:55] LABS: Anion Gap 23 mmol/L (10-20); BUN (Urea Nitrogen) 4 mg/dL (7.0-18.7); Calc. Creatinine Clearance 85 mL/min (70-130); Calcium 8.2 mg/dL (7.8-10.44); Carbon Dioxide 12 mmol/L (22-29); Chloride 104 mmol/L (98-107); Estimated GFR-MDRD Greater than 90; Glucose 222 mg/dL (70-105); Potassium 3.7 mmol/L (3.5-5.1); Sodium 135 mmol/L (136-145)
[2018-12-28] MEDS ORDERED: Sodium Chloride 0.9% 1,000 ML IV SCH (20:00)
[2018-12-28] MEDS: D5 1/2 NS w/40 mEq KCL 1,000 ML IV SCH ×2 (22:22)
[2018-12-28] MEDS ORDERED: Multivitamins, Adult 10 ML, Folic Acid 1 MG, Thiamine HCl 100 MG in Dextrose 5 %-0.45 %... IV SCH (23:59)
[2018-12-29] MEDS ORDERED: Dextrose 5 %-0.45 % NaCl 1,000 ML IV PRN (00:03)
[2018-12-29] MEDS ORDERED: Sodium Chloride 0.9% 1,000 ML IV PRN ×4 (00:03)
[2018-12-29] MEDS ORDERED: CCU Electrolyte Replacement 1 EACH IVPB ONE (00:03)
[2018-12-29] MEDS ORDERED: D5 1/2 NS w/20 mEq KCL 1,000 ML IV PRN (00:03)
[2018-12-29] MEDS ORDERED: NS 0.9% w/ 20 MEQ KCL 1,000 ML IV PRN ×2 (00:03)
[2018-12-29] MEDS ORDERED: HUMULIN R 100 UNITS in Sodium Chloride 0.9% 100 ML IVPB SCH (00:15)
[2018-12-29 00:59] LABS: Anion Gap 11 mmol/L (10-20); Anion Gap 12 mmol/L (10-20); BUN (Urea Nitrogen) 4 mg/dL (7.0-18.7); Calc. Creatinine Clearance 92 mL/min (70-130); Calc. Creatinine Clearance 93 mL/min (70-130); Calcium 7.8 mg/dL (7.8-10.44); Carbon Dioxide 16 mmol/L (22-29); Carbon Dioxide 17 mmol/L (22-29); Chloride 110 mmol/L (98-107); Estimated GFR-MDRD Greater than 90; Glucose 128 mg/dL (70-105); Glucose 129 mg/dL (70-105); Potassium 3.7 mmol/L (3.5-5.1); Sodium 134 mmol/L (136-145)
[2018-12-29 01:07] LABS: Magnesium 1.7 mg/dL (1.6-2.6)
[2018-12-29] MEDS: Promethazine HCl 25 MG/ML VIAL IM PRN (02:12)
[2018-12-29] MEDS ORDERED: Magnesium Sulfate 3 GM in Sodium Chloride 0.9% 100 ML IVPB SCH (06:30)
[2018-12-29] MEDS: HumaLOG 300 UNITS/3 ML VIAL SC PRN ×2 (07:06→08:07)
[2018-12-29] MEDS ORDERED: D5 1/2 NS w/20 mEq KCL 1,000 ML IV SCH (07:30)
--- NOTE | 2018-12-29 08:50 | PRG ---
DATE OF SERVICE: 12/29/2018 SUBJECTIVE: The patient is a 23-year-old incarcerated female with a past medical history significant for type 1 diabetes and seizure disorder, who presented with what appears to be euglycemic DKA. Over the last 24 hours, the patient has received approximately 3 to 4 L of IV fluids, had replacement of her potassium and magnesium, and has been given consistently D5 in her IV fluids and approximately two of those liters. She has insulin p.r.n. sliding scale. The patient this morning reports that she is feeling quite as weak, has a clear head. She still reports heartburn with cough that seems to precipitate vomiting as the patient has vomited twice overnight, had bilious fluid. The patient reports that she is having good movement and no other obstetric complaints. OBJECTIVE: VITAL SIGNS: Blood pressure is 104/66, heart rate of 67, and temperature 98.3. GENERAL: She is resting comfortably in the bed. She is speaking with more clarity and energy than she was when she first arrived. The patient is alert and oriented x3 and is requesting a full liquid diet today. HEART: Has regular rate and rhythm. LUNGS: Clear. ABDOMEN: Gravid and soft. EXTREMITIES: Nontender. heart tracing shows the fetus with a baseline in the 130s with moderate long-term variability, positive 15 x 15 accelerations, no decelerations. Her tocometer shows some irritability, but no consistent contraction pattern. In summary, potassium has improved from 3.2 to 3.7. Sodium is remained stable at 134. Anion gap has improved to 11 from 27. Most recent blood sugar is 109, calcium is 7.8, magnesium 1.7 up from 1.5. Vitamin B12 771 and folate 12.5. Her serum ketones are down from 8 to 1.35. ASSESSMENT AND PLAN: The patient is a 23-year-old female with type 1 diabetes and seizure disorder, who has had persistent nausea and vomiting in this last couple of weeks. Electrolyte abnormalities are improving, we will continue with the D5 half-normal saline with 20 mEq of potassium as her maintenance while she is not tolerating a diet and then getting q.hour fingersticks with sliding scale. If she starts tolerating her diet today, we can convert some of her insulin to long-acting. I have ordered 2 more grams of magnesium to supplement her today. She also has a multivitamin IV bag that she is getting daily as part of her maintenance fluids, be on her Keppra b.i.d. Fetus after looking through the previous records is weighing at about the 7th percentile. Otherwise, no other abnormalities are described. Fetus continues to have a category 1 tracing. Plan today would be to convert patient to long-acting insulin and hopefully, transition her to a regular diabetic diet. She is on scheduled Zofran and Reglan this morning to help see if we will get improvement with her appetite and nausea. Job ID: [id number]
[2018-12-29] MEDS ORDERED: Ondansetron PF 4 MG/2 ML Vial IVP SCH (09:00)
[2018-12-29] MEDS ORDERED: Famotidine/PF 20 mg/2ml Vial SLOW IVP SCH ×3 (09:00)
--- NOTE | 2018-12-29 09:23 | PDOC.EVN ---
Event Note - Event Note Event Note: [facility] DISCHARGE NOTE Time: 914 [facility] Please see prior transfer note. I arrived and received check out this AM at 0800. At 0830 until 0900, have arranged for transport due to need of higher level of care. Accepting hospital is [facility] in [place]. Dr Clemons accepting . COURSE: In brief, Ms Wallace is back after just being discharged last week with a DX of DKA then. She is back now with inability to eat worse since incarceration. She is a class C diabetic. She was admitted again yesterday with inability to eat and ketosis. Acute electrolyte issues now resolved but needs MFM and possible Psych eval. May need TPN vs NG feeds. I have relayed the information to Dr Clemons via transfer center phone call. EGA is 32 weeks 5 days. [place] EFW is about 7%. Will do ground transport. Final Diagnoses: Class C DM Hyperemesis DKA 32 weeks growth restriction
--- NOTE | 2018-12-29 09:24 | PDISCHARGE ---
Discharge - Disposition Disposition: HOME - Patient Instructions - Referrals and PCP Follow-Up Referrals and PCP Follow-Up: PROVIDER,NO PCP [Primary Care Provider] -
--- NOTE | 2018-12-29 09:25 | PDISCHARGE ---
Discharge - Patient Instructions - Referrals and PCP Follow-Up Referrals and PCP Follow-Up: PROVIDER,NO PCP [Primary Care Provider] -
--- NOTE | 2018-12-29 10:15 | PRG ---
DATE OF SERVICE: 12/29/2018 TRANSFER OF MEDICAL CARE NOTE: LOCATION: Labor and Delivery and the patient in antepartum bed 1. TIME OF EVALUATION: At the same time of intervention, the evaluation was timed at 0830 hours to 0845 hours. In brief, this patient was admitted as a readmit after just being discharged last week for an episode of diabetic ketoacidosis. She is at 32 weeks and 5 days, and is currently an inmate. During a recent admission, she was observed in the ICU for DKA, which resolved with a consult from Family Medicine. She arrives now with continued inability to eat of unclear etiology. She arrived with a gap ketosis, which has been managed by the RN HOME CARE team. I arrived this morning at 0800 hours and was briefed on the patient's care. Her initial ketones were over 7 and the last check was 1.5. This was with IV fluid hydration. She is now with D5 normal saline. Her potassium is also being replaced IV. Magnesium is being given to replace mild hypomagnesemia with the last level of 1.7. Blood sugars are being done hourly and they are currently on sliding scale as her p.o. intake is not constant. Due to her nausea and vomiting, which has been persistent, she has been placed on Reglan, Zofran, and Pepcid. She also has a history of seizure disorder, for which she is on Keppra 500 mg p.o. b.i.d. Ultrasound done on December 11 showed 7% growth. We have held her usual long-acting insulin as she is not having regular p.o. intake. I have discussed the case with the patient's nurse, Cami, as well as Mignon Phillips in person. We all agree that due to the bounce-back nature and persistent DKA propensity in this patient, along with 7% growth, inpatient MFM evaluation is indicated. As we do not have MFM Services here, we are looking to transfer to higher level of care. I cannot rule out a component of psychogenic involvement as these symptoms seem to have worsened due to her incarceration. As we do not have inpatient psychiatry either, it may be best to transfer for this secondary reason as well. If the patient cannot tolerate a regular diet, we may need to consider TPN/NG tube feeds, which again would be best served with inpatient MFM evaluation. As the patient has had over a 20 pounds weight loss since incarceration, and the persistent issues with her diabetic status, we are looking to transfer the patient for elevated level of care with Maternal Medicine. We are currently looking at the transfer center for a recipient hospital. The patient's guard has been briefed on this (with limited medical information, just aid in need for transport) and Cami and I are about to approach the patient to let her know our plans. For now, continue plan of care. Job ID: [id number] [facility]
[2018-12-29] MEDS ORDERED: Metoclopramide HCl 10 MG/2 ML VIAL IVP SCH (14:00)
== END 2018-12-29 10:40 | disposition short-term general hospital (02) | DRG 831 ==
LOC: L&D/OP 07:57 → ERS 07:57 → EDSTATUS 08:10 → L&D 12:50
PROVIDERS: ADMIT Obstetrics & Gynecology; ATTEND Obstetrics & Gynecology
DX: O24.013 Pre-existing type 1 diabetes mellitus, in pregnancy, third trimester (principal); E10.10 Type 1 diabetes mellitus with ketoacidosis without coma; O99.353 Diseases of the nervous system complicating pregnancy, third trimester; G40.909 Epilepsy, unspecified, not intractable, without status epilepticus; Z3A.32 32 weeks gestation of pregnancy; O36.5930 Maternal care for other known or suspected poor fetal growth, third trimester, not applicable or unspecified; Z88.0 Allergy status to penicillin
CPT/HCPCS: 36415; 36416; 80048; 80053; 81001; 82010; 82607; 82746; 83735; 83930; J1953; J2001; J2405; J2550; J2765; J3411; J3475; J3480; J3490; J7042; J7121; S0028